=== PATIENT | male | born 1955 | race Caucasian/White ===

== ENCOUNTER 2019-03-03 13:45 | Day surgery (SDC) | payer OTHER ==
[2019-03-02 14:34] VITALS: BMI 22.5
[2019-03-03] VITALS (11 sets, daily range): BP systolic 112–122; BP diastolic 70–80; PULSE 56–64; RESP 16–25; Ht 193 cm; Wt 85.6 kg
[~2019-03-03] VITALS: Ht 193 cm; Wt 85.6 kg
[~2019-03-03 13:45] MED LIST: ALEN70TA5 PO; CEFAZOLIN 1 GM INJ ONE
[2019-03-03] MEDS ORDERED: MET25 PO (15:10)
[2019-03-03] MEDS ORDERED: fosamax (15:10)
[2019-03-03] MEDS ORDERED: FOSA (15:10)
[2019-03-03] MEDS ORDERED: TRAM50TA2 PO (15:10)
[2019-03-03] MEDS ORDERED: IBUP-1542 PO (15:10)
--- NOTE | 2019-03-03 16:46 | HPN ---
Date/Time of Note Date/Time of Note DATE: 03/03/19 TIME: 16:46 Interval H&P Admission Note Pt. seen H&P reviewed: No system changes EFRAIN BUBSY March 03, 2019 16:46
[2019-03-03] MEDS ORDERED: BUPIVACAINE 0.5% (SDV) 30 ML INJ ONE (18:20)
[2019-03-03] MEDS ORDERED: MIDAZOLAM 1 MG/ML 2 ML INJ ONE (18:43)
--- NOTE | 2019-03-03 18:54 | OPPN ---
Date/Time of Note Date/Time of Note DATE: 03/03/19 TIME: 18:53 Operative Report Preoperative Diagnosis Right middle finger trigger, tendon adhesions, tenosynovitis Postoperative Diagnosis Right middle finger trigger, tendon adhesions, tenosynovitis, retinacular/ganglion cyst Operation/Procedure Performed Right middle finger trigger finger release, flexor tendon tenolysis, tenosynovectomy, excision retinacular/ganglion cyst Surgeon see signature line bilingual administrative assistant none Anesthesia: MAC Estimated blood loss: 0 - 10 ml's Transfusion Required none Specimen none Grafts/Implants none Complications none EFRAIN BUSBY March 03, 2019 18:54
--- NOTE | 2019-03-03 18:55 | PREAC ---
Date/Time of Note Date/Time of Note DATE: 03/03/19 TIME: 18:51 Anesthesia Eval and Record Evaluation Time Pre-Procedure Interview DATE: 03/03/19 TIME: 18:51 Age 63 Sex male NPO: 8 hrs Preoperative diagnosis Right middle trigger finger Planned procedure Right middle finger release Past Medical History Past Medical History: Includes Cardio: HTN Surgery & Anesthesia Issues No known issue Meds Anticoagulation: No Beta Evens within 24 hr: No Reason Beta Evens not given: Other Reported Medications Methotrexate* (Methotrexate*) 2.5 Mg Tab, 25 MG PO weekly, TAB 03/03/19 [fosamax] No Conflict Check 03/03/19 [fosa] No Conflict Check 03/03/19 Ibuprofen* (Ibuprofen*) 600 Mg Tablet, 600 MG PO Q6, TAB 03/03/19 Tramadol HCl (Tramadol HCl) 50 Mg Tablet, 50 MG PO BID, #60 TAB 03/03/19 Discontinued Reported Medications Alendronate Sodium* (Fosamax*) 70 Mg Tablet, 70 MG PO Q7D, #4 TAB 03/02/19 Meds reviewed: Yes Allergies Coded Allergies: cortisone (Verified Allergy, Severe, broke out, hospitalize for 3 day, , 03/03/19) omeprazole (Verified Allergy, Severe, H/A, Breakout with rashes, , 03/03/19) ethambutol (Verified Allergy, Unknown, 03/03/19) Uncoded Allergies: wasp (Allergy, Severe, welt, 03/03/19) Allergies Reviewed: Yes Labs/Studies Labs Reviewed: Reviewed by anesthesiologist test: N/A Pre-procedure Exam Last vitals Vital Signs Date Temp Pulse Resp B/P (MAP) Pulse Ox O2 O2 Flow FiO2 Time Delivery Rate 03/03/19 98.4 59 16 122/73 98 Room Air 15:19 (89) Airway: Adequate mouth opening Mallampati: Mallampati II Teeth: Abnormal Lung: Normal Heart: Normal ASA Physical Status ASA physical status: 2 Emergency: None Planned Anesthetic General/MAC: MAC Pre-operative Attestations Prior to commencing anesthesia and surgery, the patient was re-evaluated, there was verification of: *The patient's identity *The results of appropriate recent lab work and preoperative vital signs *The above evaluation not changing prior to induction *Anesthetic plan, risk benefits, alternative and complications discussed with p atient/family; questions answered; patient/family understands, accepts and wishes to proceed. TERRY HOWARD MD March 03, 2019 18:55
[2019-03-03] MEDS ORDERED: hydrALAzine 20 MG INJ IV PRN ×2 (19:00→19:30)
[2019-03-03] MEDS ORDERED: EPHEDrine 25 MG/5 ML SYG IV PRN ×2 (19:00→19:30)
[2019-03-03] MEDS ORDERED: LABETALOL HCL 20MG INJ IV PRN ×2 (19:00→19:30)
[2019-03-03] MEDS ORDERED: HYDROmorphONE 1 MG/5 ML IV SYRINGE IV PRN ×2 (19:00→19:30)
[2019-03-03] MEDS ORDERED: ONDANSETRON 4 MG INJ IV PRN ×2 (19:00→19:30)
--- NOTE | 2019-03-03 19:10 | PAC ---
Date/Time of Note Date/Time of Note DATE: 03/03/19 TIME: 19:09 Post-Anesthesia Notes Post-Anesthesia Note Last documented vital signs Vital Signs Date Temp Pulse Resp B/P (MAP) Pulse Ox O2 O2 Flow FiO2 Time Delivery Rate 03/03/19 98.4 59 16 122/73 98 Room Air 15:19 (89) Activity: WNL Respiratory function: WNL Cardiovascular function: WNL Mental status: Baseline Pain reasonably controlled: Yes Hydration appropriate: Yes Nausea/Vomiting absent: Yes TERRY HOWARD MD March 03, 2019 19:10
--- NOTE | 2019-03-03 20:47 | OPR ---
DATE OF OPERATION: 03/03/2019 SURGEON: Efrain Huizar MD. ANESTHESIA: Local MAC. PREOPERATIVE DIAGNOSIS: 1. Right middle finger trigger finger. 2. Right middle finger flexor tendon adhesions and tenosynovitis. POSTOPERATIVE DIAGNOSES 1. Right middle finger trigger finger. 2. Right middle finger flexor tendon adhesions and tenosynovitis. 3. Right middle finger retinacular/ganglion cyst at the flexor sheath. PROCEDURE: 1. Right middle finger trigger finger release. 2. Right middle finger flexor digitorum superficialis and profundus tendon tenolysis. 3. Right middle finger flexor tendon and flexor sheath tenosynovectomy. 4. Right middle finger excision of retinacular/ganglion cyst at the flexor sheath. OPERATIVE FINDINGS: Right middle finger stenosing tenosynovitis with tendon adhesions as well as ten osynovitis and a retinacular/ganglion cyst flexor sheath. INDICATION FOR PROCEDURE: A 63-year-old male with longstanding right middle finger pain, who failed conservative measures, elected to proceed with surgical intervention, understanding the risks and patsy efits. DESCRIPTION OF PROCEDURE: The patient was seen in the in the preoperative area and all further quest ions were answered. Again, he gave informed consent, understanding the risks and benefits. He was t aken to operative suite and placed in supine position. Sedation was administered as was Ancef 2 gram s IV. Tourniquet placed in the right upper extremity and right upper extremity was prepped with Chlo raPrep stick and draped in usual sterile fashion. Esmarch bandage was used to exsanguinate the extre mity and tourniquet inflated to 250 mmHg. A 10 mL volume of 0.5% Marcaine was injected at the right wrist and hand to achieve local anesthesia. After adequate anesthesia, an oblique incision within th e distal palmar crease was utilized with sharp dissection carried down through skin and subcutaneous tissue. Tenotomy scissor divided soft tissues overlying the flexor sheath and the flexor sheath was visualized. There was a retinacular/ganglion cyst, which was arising from the flexor sheath and this was excised using a 15 blade knife and Adson forceps. I then turned my attention to the trigger fin amara release and the entirety of the A1 david was incised along its midline. The tendons were inspec vi and found to have adhesions as well as tenosynovitis. The tendons were brought out of the wound using a retractor and a traction tenolysis was first performed between the FDS and the FDP tendons. After the tenolysis, the tendon glided more independently, but had some impingement due to the tenosy novitis at the flexor sheath. Attention was then turned to the tenosynovectomy and a tenotomy scisso r as well as Adson forceps was used to perform a flexor tenosynovectomy of the right middle finger, f lexor sheath including the FDS and FDP tendons. The wound was copiously irrigated and the tendon gli ded independently. Skin closed with 5-0 nylon. Xeroform placed over wound followed by sterile gauze , Webril, and bias dressing. Tourniquet deflated after 6 minutes. The patient was awakened from ane sthesia. He was taken to the postoperative suite in stable condition, tolerated the procedure well w ithout complication. SPECIMENS: None. ESTIMATED BLOOD LOSS: 5 mL. COUNTS: Sponge, instrument and needle counts correct. TOURNIQUET TIME: 6 minutes. CONDITION ON DISCHARGE: Stable. The patient was given a nonrefillable 5-day prescription for pain medication for surgery today. Dictated By: EFRAIN GARNETT/HATTIE Conf#: [id number] DID#: [id number]
== END 2019-03-03 20:04 | disposition home or self-care (01) ==
LOC: SDS 13:45
PROVIDERS: ATTEND Orthopaedic Surgery Hand Surgery
DX: M65.331 Trigger finger, right middle finger (principal); M65.841 Other synovitis and tenosynovitis, right hand; M67.441 Ganglion, right hand; I10 Essential (primary) hypertension
CPT/HCPCS: 26160; J2250; Z7512; Z7610; J0690

== ENCOUNTER 2019-04-23 08:28 | Day surgery (SDC) | payer OTHER ==
[~2019-04-23] VITALS: Ht 190.5 cm; Wt 88.1 kg
[~2019-04-23 08:28] MED LIST changes: -ALEN70TA5 PO; -CEFAZOLIN 1 GM INJ ONE; +FOSA; +IBUP-1542 PO; +MET25 PO; +TRAM50TA2 PO; +fosamax
[2019-04-23 10:09] VITALS: Ht 190.5 cm; Wt 88.1 kg
[2019-04-23] MEDS ORDERED: LIDOCAINE 2% (SDV) 5 ML INJ ONE (11:12)
[2019-04-23] MEDS ORDERED: PROPOFOL 200 MG INJ ONE (11:12)
[2019-04-23] MEDS ORDERED: PROPOFOL 40 ML ONE (11:12)
--- NOTE | 2019-04-23 11:12 | PREAC ---
Date/Time of Note Date/Time of Note DATE: 04/23/19 TIME: 11:10 Anesthesia Eval and Record Evaluation Time Pre-Procedure Interview DATE: 04/23/19 TIME: 11:10 Age 63 Sex male NPO: 8 hrs Preoperative diagnosis OCCULT BEED Planned procedure COLONOSCOPY Past Medical History Past Medical History: Includes Musculoskeletal: Other (FIBROMYALGIA) Surgery & Anesthesia Issues No known issue Meds Anticoagulation: No Beta Evens within 24 hr: No Reason Beta Evens not given: Pt. not on B-Evens Reported Medications Methotrexate* (Methotrexate*) 2.5 Mg Tab, 25 MG PO weekly, TAB 03/03/19 [fosamax] No Conflict Check 03/03/19 Tramadol HCl (Tramadol HCl) 50 Mg Tablet, 50 MG PO BID, #60 TAB 03/03/19 Discontinued Reported Medications Ibuprofen* (Ibuprofen*) 600 Mg Tablet, 600 MG PO Q6, TAB 03/03/19 Meds reviewed: Yes Allergies Coded Allergies: cortisone (Verified Allergy, Severe, broke out, hospitalize for 3 day, , 03/03/19) omeprazole (Verified Allergy, Severe, H/A, Breakout with rashes, , 03/03/19) ethambutol (Verified Allergy, Unknown, 03/03/19) Uncoded Allergies: wasp (Allergy, Severe, welt, 03/03/19) Allergies Reviewed: Yes Labs/Studies Labs Reviewed: Reviewed by anesthesiologist test: N/A Pre-procedure Exam Airway: Adequate mouth opening, Adequate thyromental dist Mallampati: Mallampati I Teeth: Normal Lung: Normal Heart: Normal ASA Physical Status ASA physical status: 2 Emergency: None Planned Anesthetic General/MAC: MAC Planned Pain Management Parenteral pain med Pre-operative Attestations Prior to commencing anesthesia and surgery, the patient was re-evaluated, there was verification of: *The patient's identity *The results of appropriate recent lab work and preoperative vital signs *The above evaluation not changing prior to induction *Anesthetic plan, risk benefits, alternative and complications discussed with patient/family; questions answered; patient/family understands, accepts and wishes to proceed. TWYLA BACK Apr 23, 2019 11:12
--- NOTE | 2019-04-23 11:54 | PAC ---
Date/Time of Note Date/Time of Note DATE: 04/23/19 TIME: 11:54 Post-Anesthesia Notes Post-Anesthesia Note Last documented vital signs 117/67 78 78 98.2 TEMP 99% Activity: WNL Respiratory function: WNL Cardiovascular function: WNL Mental status: Baseline Pain reasonably controlled: Yes Hydration appropriate: Yes Nausea/Vomiting absent: Yes TWYLA BACK Apr 23, 2019 11:54
[2019-04-23] MEDS ORDERED: FENTAnyl 50 MCG/ML VIAL IV PRN (12:00)
[2019-04-23 12:10] VITALS: BP 117/75; PULSE 58; RESP 16
== END 2019-04-23 15:16 | disposition home or self-care (01) ==
LOC: GIL 08:28
PROVIDERS: ATTEND Internal Medicine Gastroenterology
DX: K92.1 Melena (principal); K64.8 Other hemorrhoids; D12.3 Benign neoplasm of transverse colon
CPT/HCPCS: 45380; 88305; Z7610